=== PATIENT | male | born 1980 | race Caucasian/White ===

== ENCOUNTER 2017-09-07 14:20 | Emergency (ER) | payer OTHER, MEDICARE ==
--- NOTE | 2017-09-07 15:47 | EDM.PDOC ---
ED HPI GENERAL MEDICAL PROBLEM - General Chief Complaint: ENT Problem Stated Complaint: SORE THROAT Time Seen by Provider: 09/07/17 15:30 Source of Information: Reports: Patient History Limitations: Reports: No Limitations - History of Present Illness INITIAL COMMENTS - FREE TEXT/NARRATIVE: Hank is a 37yo male presents to ED ambulatory with c/o sore throat and swollen lymph nodes in his neck x 2 days. His nephew returned from [place] a few days ago and was dx with strep throat. Patient will be leaving for [place] for a few days this week and is concerned that he may also be developing strep throat. Denies ear pain, headache, does have sore throat and dry hacky cough x 2 days, malaise, chills and sweats- has not checked his temp. He is otherwise healthy, NKDA. Onset: Gradual Duration: Day(s): (2) Location: Reports: Other (throat) Improves with: Reports: None, Other (has been taking emergenC at home x 2 days) Worsens with: Reports: None Associated Symptoms: Reports: Cough, Diaphoresis, Fever/Chills, Loss of Appetite , Malaise. Denies: cough w sputum, Headaches, Rash, Shortness of Breath Treatments [employer]: Reports: Other (see below) (EmergenC) Throat Pain Score (Numeric/FACES): 4 - Related Data Allergies Allergy/AdvReac Type Severity Reaction Status Date / Time No Known Allergies Allergy Verified 09/07/17 15:01 Home Meds: Home Meds Gabapentin [Neurontin] 100 mg PO ASDIRECTED 09/07/17 [History] Past Medical History Musculoskeletal History: Reports: Other (See Below) Other Musculoskeletal History: right thumb with screw; back surgery; right elbow wire mesh and screws; right knee scope - Past Surgical History HEENT Surgical History: Reports: Tonsillectomy Male Surgical History: Reports: Vasectomy Social & Family History - Tobacco Use Smoking Status *Q: Current Every Day Smoker Years of Tobacco use: 13 Packs/Tins Daily: 0.5 - Caffeine Use Caffeine Use: Reports: Tea - Recreational Drug Use Recreational Drug Use: No ED ROS ENT - Review of Systems Review Of Systems: See Below Constitutional: Reports: Chills (and sweats), Malaise, Fatigue, Decreased Appetite HEENT: Reports: Throat Pain, Other (does wear bilat hearing aids). Denies: Ear Pain, Eye Pain Respiratory: Reports: Cough (dry/hacking). Denies: Shortness of Breath Cardiovascular: Reports: No Symptoms GI/Abdominal: Reports: Diarrhea (x 1 this morning), Decreased Appetite. Denies : Abdominal Pain, Nausea, Vomiting : Reports: No Symptoms Musculoskeletal: Reports: Neck Pain (mild discomfort over swollen lymph nodes specifically with turning his head) Skin: Reports: No Symptoms. Denies: Rash Neurological: Reports: No Symptoms Psychiatric: Reports: No Symptoms ED EXAM, ENT - Physical Exam Exam: See Below Exam Limited By: No Limitations General Appearance: Alert, WD/WN, No Apparent Distress Eye Exam: Bilateral Eye: EOMI, PERRL Ears: Normal External Exam, Normal Canal, Hearing Grossly Normal, Normal TMs Nose: Normal Inspection Mouth/Throat: Normal Inspection, Normal Gums, Normal Lips, Normal Teeth, Pharyngeal Erythema, Throat Pain, Other (tonsills are absent, no exudates to OP) Head: Atraumatic, Normocephalic Neck: Normal Inspection, Supple, Lymphadenopathy (L) (tender), Lymphadenopathy ( R) (tender) Respiratory/Chest: No Respiratory Distress, Lungs Clear, Normal Breath Sounds Cardiovascular: Normal Peripheral Pulses, Regular Rate, Rhythm, No Edema, No Rub GI/Abdominal: Normal Bowel Sounds, Soft (Male) Exam: No Hernia, Deferred Rectal (Males) Exam: Deferred Extremities: Normal Inspection, Normal Range of Motion, No Pedal Edema Neurological: Alert, Oriented, CN II-XII Intact Psychiatric: Normal Affect, Normal Mood Skin: Warm, Dry, Intact Course - Vital Signs Last Recorded V/S: Last Vital Signs Temp 97.6 F 09/07/17 14:57 Pulse 62 09/07/17 14:57 Resp 20 09/07/17 14:57 BP 123/85 09/07/17 14:57 Pulse Ox 98 09/07/17 14:57 - Orders/Labs/Meds Orders: Active Orders 24 hr Category Date Time Status CULTURE STREP A CONFIRMATION [] Stat Lab 09/07/17 14:45 Results STREP SCRN A RAPID W CULT CONF [] Stat Lab 09/07/17 14:45 Ordered Labs: Strep screen is negative. As patient has had exposure to + strep and is leaving town I have elected to write his a rx for zpak, he can fill this if worsening over the next 48 hours. Encouraged to push fluids, tylenol/motrin and push fluids. Departure - Departure Time of Disposition: 16:13 Disposition: Home, Self-Care 01 Condition: Good Clinical Impression: Acute pharyngitis Qualifiers: Pharyngitis/tonsillitis etiology: unspecified etiology Qualified Code(s): J02.9 - Acute pharyngitis, unspecified - Discharge Information Instructions: Pharyngitis, [id number], Sore Throat, [id number] Forms: ED Department Discharge Additional Instructions: You have had exposure to strep throat but currently have a negative strep screen. Due to exposure and leaving town this week I have written prescription for zpak to fill if worsening over the next 48 hours. In the meantime, recommend push plenty of fluids/water, tylenol/motrin every 4 hours, continue with EmergenC daily. Salt water gargles may also help the throat pain. Rest. Return to ER or follow up with Primary Care or Walk-In Clinic if not improved by 7-10 days.
== END 2017-09-07 16:30 | disposition home or self-care (01) ==
LOC: JD.ED 14:20
DX: J02.9 Acute pharyngitis, unspecified (principal); F17.210 Nicotine dependence, cigarettes, uncomplicated
CPT/HCPCS: 87081; 87430; 99283